=== PATIENT | male | born 1965 | race Caucasian/White ===

== ENCOUNTER 2020-04-02 19:26 | Emergency (ER) | payer OTHER ==
[2020-04-02] MEDS ORDERED: Diphtheria,Pertussis(Acell),Tetanus Vaccine 0.5 ML SDV IM ONE (19:59)
[2020-04-02] MEDS ORDERED: Bacitracin Oint 1 GM U/D Packet TOP ONE (19:59)
--- NOTE | 2020-04-02 20:04 | EDM.PDOC ---
ED HPI GENERAL MEDICAL PROBLEM - General Chief Complaint: Laceration Stated Complaint: FISH HOOK RIGHT HAND, 3RD FINGER Time Seen by Provider: 04/02/20 20:02 Source of Information: Reports: Patient, RN History Limitations: Reports: No Limitations - History of Present Illness INITIAL COMMENTS - FREE TEXT/NARRATIVE: 54 yo male here with a single obdulio of a fish hook in his R long finger tip. Tetanus not UTD. Onset: Today, Sudden Onset Date: 04/02/20 Duration: Minutes:, Constant Location: Reports: Upper Extremity, Right Quality: Reports: Sharp Severity: Mild Improves with: Reports: Rest Worsens with: Reports: Movement (of hook) Context: Reports: Trauma Associated Symptoms: Reports: No Other Symptoms Treatments [employer] CONSULTANT: Reports: Other (see below) (none) - Related Data Allergies Allergy/AdvReac Type Severity Reaction Status Date / Time iodine Allergy Edema Verified 04/02/20 19:47 Home Meds: Home Meds NK [No Known Home Meds] 04/02/20 [History] Past Medical History - Past Health History Medical/Surgical History: Denies Medical/Surgical History Social & Family History - Tobacco Use Smoking Status *Q: Never Smoker - Caffeine Use Caffeine Use: Reports: Coffee - Recreational Drug Use Recreational Drug Use: No ED ROS GENERAL - Review of Systems Review Of Systems: See Below Constitutional: Reports: No Symptoms Skin: Reports: Wound (puncture of R long finger tip) Neurological: Reports: No Symptoms ED EXAM, SKIN/RASH Exam: See Below Exam Limited By: No Limitations General Appearance: Alert, WD/WN, No Apparent Distress Neurological: Alert, Oriented, CN II-XII Intact, Normal Cognition, No Motor/Sensory Deficits Psychiatric: Normal Affect, Normal Mood Skin: Warm, Dry, Normal Color, No Rash, Wound/Incision (single obdulio of fish hook imbedded in tip of his R long finger) Location, Skin: Upper Extremity, Right Characteristics: Other (puncture) Associated features: Tenderness. No: Warmth, Induration, Lymphangitis ED SKIN PROCEDURES - Foreign Body Removal Performing Doctor:: Otf Calixto Anesthesia Type: Local (2 ml of 1% lidocaine) Complications:: No Comments:: Obdulio of fish hook covered with a #18 g needle and the hook was backed out. Course - Vital Signs Last Recorded V/S: Last Vital Signs Temp 36.4 C 04/02/20 19:49 Pulse 60 04/02/20 19:49 Resp 16 04/02/20 19:49 BP 138/86 04/02/20 19:49 Pulse Ox 99 04/02/20 19:49 - Orders/Labs/Meds Orders: Active Orders 24 hr Category Date Time Status Vaccines to be Administered [RC] PER UNIT ROUTINE Care 04/02/20 19:59 Active Meds: Medications Discontinued Medications Generic Name Dose Route Start Last Admin Trade Name Doreen PRN Reason Stop Dose Admin Bacitracin 1 dose 04/02/20 19:59 04/02/20 20:06 Bacitracin Oint 1 Gm TOP 04/02/20 20:00 1 dose ONETIME ONE Administration Diphtheria/Tetanus/Acell Pertussis 0.5 ml 04/02/20 19:59 04/02/20 20:07 Adacel IM 04/02/20 20:00 0.5 ml .ONCE ONE Administration Lidocaine HCl 5 ml 04/02/20 20:00 04/02/20 20:06 Xylocaine-Mpf 1% INJECT 04/02/20 20:01 5 ml ONETIME ONE Administration Departure - Departure Time of Disposition: 20:30 Disposition: Home, Self-Care 01 Condition: Good Clinical Impression: Fish hook injury of finger Qualifiers: Encounter type: initial encounter Laterality: right Qualified Code(s): S69.91XA - Unspecified injury of right wrist, hand and finger(s), initial encounter - Discharge Information *PRESCRIPTION DRUG MONITORING PROGRAM REVIEWED*: No *COPY OF PRESCRIPTION DRUG MONITORING REPORT IN PATIENT STEFF: No Instructions: Puncture Wound, [id number] Referrals: PCP,None [Primary Care Provider] - Forms: ED Department Discharge Additional Instructions: Clean wound twice daily with soap and water. Dry. Apply antibiotic ointment and a new dressing. Keep wound clean for 3 days. Recheck for signs of infection. Take acetaminophen as needed for pain relief. Sepsis Event Note (ED) - Evaluation Sepsis Screening Result: No Definite Risk - Focused Exam Vital Signs: Vital Signs Temp Pulse Resp BP Pulse Ox 04/02/20 19:49 36.4 C 60 16 138/86 99 - My Orders Last 24 Hours: My Active Orders 04/02/20 19:59 Vaccines to be Administered [RC] PER UNIT ROUTINE - Assessment/Plan Last 24 Hours: My Active Orders 04/02/20 19:59 Vaccines to be Administered [RC] PER UNIT ROUTINE
== END 2020-04-02 20:31 | disposition home or self-care (01) ==
LOC: JP.ED 19:26
DX: S61.242A Puncture wound with foreign body of right middle finger without damage to nail, initial encounter (principal); Z23 Encounter for immunization; W45.8XXA Other foreign body or object entering through skin, initial encounter
CPT/HCPCS: 90471; 90715; 99282; J2001